=== PATIENT | female | born 1995 | race Hispanic/Latino ===

== ENCOUNTER 2020-08-17 15:23 | Outpatient (CLI) | payer OTHER | END 2020-08-17 15:24 | disposition home or self-care (01) | LOC: DTY/OP 15:23 | PROVIDERS: ATTEND Surgery | DX: E66.01 Morbid (severe) obesity due to excess calories (principal) | CPT/HCPCS: 97802 ==

== ENCOUNTER 2020-10-25 06:17 | Outpatient (CLI) | payer OTHER ==
--- NOTE | 2020-10-25 08:19 | RAD ---
2 VIEWS: CHEST: Date: 10/25/2020 COMPARISON: 07/29/2017. HISTORY: Preoperative radiograph. FINDINGS: Single view of the chest shows normal sized cardiomediastinal silhouette. The previously seen air spa ce opacities in the lungs have resolved. No pleural effusion is seen. No pneumothorax is present. Bon es are unremarkable. IMPRESSION: No evidence of acute cardiopulmonary disease. POS: EAA
[2020-10-25 09:27] LABS: #Basophils 0.1 10x3/uL (0.0-0.2); #Eosinphils 0.1 10x3/uL (0.0-0.5); #Monocytes 0.8 10x3/uL (0.0-1.1); #Neutrophils 6.1 10x3/uL (1.5-8.4); %Basophils 0.5 % (0.0-2.0); %Eosinophils 1.4 % (0.0-6.0); %Lymphocytes 27.7 % (18.0-47.0); %Monocytes 8.4 % (0.0-10.0); %Neutrophils 61.6 % (40.0-75.0); Hemoglobin 11.6 g/dL (12.0-16.0); Mean Corpuscular Hemoglobin 26.9 PG (27.0-33.0); Mean Corpuscular Volume 86.8 fl (80.0-100.0); Mean Platelet Volume 11.9 fl (7.4-10.4); Platelet Count 318 10x3/uL (130-400); RBC Distribution Width 15.8 % (11.5-14.5); Red Blood Cell (RBC) Count 4.31 10x6/uL (3.90-5.20); White Blood Cell (WBC) Count 9.9 10x3/uL (4.5-11.0)
[2020-10-25 09:50] LABS: ALT (SGPT) 303 U/L (8-55); AST (SGOT) 147 U/L (5-34); Alkaline Phosphatase 109 U/L (40-110); Anion Gap 18 mmol/L (10-20); BUN (Urea Nitrogen) 10 mg/dL (7.0-18.7); Bilirubin, Total 0.4 mg/dL (0.2-1.2); Calc. Creatinine Clearance 0 mL/min (70-130); Calcium 9.3 mg/dL (7.8-10.44); Carbon Dioxide 22 mmol/L (22-29); Chloride 104 mmol/L (98-107); Globulin 3.3 g/dL (2.4-3.5); Glucose 101 mg/dL (70-105); Potassium 4.7 mmol/L (3.5-5.1); Protein, Total 7.3 g/dL (6.0-8.3); Sodium 139 mmol/L (136-145)
[2020-10-25 09:52] LABS: BHCG - Serum Negative (NEGATIVE); Pregs Control Background? CLEAR/WHITE (CLR/WHITE); Pregs Control Bar Appear? YES (CONTROL BAR)
[2020-10-25 12:55] LABS: Hemoglobin A1c 5.3 % (4.0-6.0)
[2020-10-25 19:30] LABS: SARS-CoV-2 MS2 Positive; SARS-CoV-2 N Gene Negative; SARS-CoV-2 S Gene Negative; SARS-CoV-2 by NAA Not Detected (NotDetected); SARS-CoV-2 orf1ab Negative
== END 2020-10-25 06:18 | disposition home or self-care (01) ==
LOC: LABBT 06:17
PROVIDERS: ATTEND Surgery
DX: Z01.818 Encounter for other preprocedural examination (principal); Z20.828 Contact with and (suspected) exposure to other viral communicable diseases; E66.01 Morbid (severe) obesity due to excess calories
CPT/HCPCS: 71046; 80053; 83036; 84703; 85025; 87635; 93005; 93010; U0003

== ENCOUNTER 2020-10-25 07:00 | Inpatient (IN) | payer OTHER ==
[2020-10-27 11:11] VITALS: BMI 66.2
[2020-10-30] MEDS ORDERED: Bupivacaine 0.25% HCL 30 ML VIAL ONE ×2 (06:46→09:14)
[2020-10-30] MEDS ORDERED: Lidocaine 1% w/Epinephrine 1:100K 20 ML VIAL ONE ×2 (06:46→09:14)
[2020-10-30] MEDS ORDERED: Heparin 5,000 UNITS/ML VIAL ONE (06:52)
[2020-10-30] MEDS ORDERED: Fentanyl 250 MCG/5 ML VIAL ONE (06:58)
[2020-10-30] MEDS ORDERED: SUGAMMADEX SODIUM 500 MG/5 ML VIAL ONE (06:59)
[2020-10-30] MEDS ORDERED: PROPOFOL 20 ML ONE (06:59)
[2020-10-30] MEDS ORDERED: Midazolam HCl 2 mg/2 ml Vial ONE (07:17)
[2020-10-30] MEDS ORDERED: Scopolamine 1.5 mg/72 hour Patch ONE (07:18)
[2020-10-30] MEDS ORDERED: Rocuronium Bromide 50 MG/5 ML VIAL ONE (08:04)
[2020-10-30] MEDS ORDERED: Promethazine HCl 25 MG/ML VIAL SLOW IVP PRN (08:11)
[2020-10-30] MEDS ORDERED: Promethazine HCl 25 MG/ML VIAL IM PRN ×3 (08:11→09:21)
[2020-10-30] MEDS ORDERED: Ondansetron HCl/PF 4 MG/2 ML Vial IVP PRN (08:11)
[2020-10-30] MEDS ORDERED: Dextrose 5% in Water 1,000 ML IV PRN (08:58)
[2020-10-30] MEDS ORDERED: Ondansetron PF 4 MG/2 ML Vial IVP PRN ×2 (08:58→09:21)
[2020-10-30] MEDS ORDERED: diphenhydrAMINE 50 MG/ML VIAL IVP PRN ×2 (08:58→09:21)
[2020-10-30] MEDS ORDERED: Hydrocodone-Acetamin 15 ML UDCUP PO PRN (08:58)
[2020-10-30] MEDS ORDERED: Dextrose 50% Abboject 50 ML SYRINGE SLOW IVP PRN (08:58)
[2020-10-30] MEDS ORDERED: hydrALAZINE 20 MG/ML VIAL SLOW IVP PRN (08:58)
[2020-10-30] MEDS ORDERED: Promethazine HCl 25 MG/ML VIAL ONE ×2 (09:05)
[2020-10-30] MEDS ORDERED: Fentanyl 100 MCG/2 ML VIAL ONE ×2 (09:16→09:32)
[2020-10-30] MEDS ORDERED: diphenhydrAMINE 25 MG CAP PO PRN (09:21)
[2020-10-30] MEDS ORDERED: Zolpidem Tartrate 5 MG TAB PO PRN (09:21)
[2020-10-30] MEDS ORDERED: fentaNYL Citrate/PF 2,000 MCG in Sodium Chloride 0.9% 60 ML IV PRN (09:21)
[2020-10-30] MEDS ORDERED: diphenhydrAMINE 50 MG/ML VIAL IM PRN (09:21)
[2020-10-30] MEDS ORDERED: Naloxone HCl 0.4 mg/ml Vial IV PRN (09:21)
[2020-10-30] MEDS ORDERED: Communication Order-Pharmacy FS SCH (09:30)
--- NOTE | 2020-10-30 09:32 | OP ---
DATE OF PROCEDURE: 10/30/2020 PREOPERATIVE DIAGNOSIS: Morbid obesity. PROCEDURES PERFORMED: Laparoscopic sleeve gastrectomy, esophagogastroscopy. INDICATIONS: The patient is a 25-year-old female, morbidly obese, who has attempted multiple weight loss programs without success. FINDINGS: A 38-[place] bougie was used. Very large woman with a BMI of almost 70. Large extra long trocars had to be used. DESCRIPTION OF PROCEDURE: After informed consent was obtained, the patient was taken to the operating room, given general endotracheal anesthesia, placed in the supine position. Abdomen was prepped and draped in usual fashion. Local anesthesia was infiltrated subcutaneously and deep, and a 12 mm incision was performed approximately 8 inches below the xiphoid, slightly to the left. Veress needle was inserted. Drop test was performed. Pneumoperitoneum was created to a volume of 2 L of carbon dioxide. Utilizing a bladeless 12 mm trocar and 0-degree laparoscope, direct visual entry into the abdominal cavity was performed. Pneumoperitoneum was created to a pressure of 15 mmHg, and the patient was placed in steep reverse Trendelenburg position. Sid liver retractor was inserted. Left lobe of the liver was retracted superiorly. Pylorus was identified. A 12 mm port was placed on the right beneath it and two 12s were placed left subcostal. The omentum was taken off the greater curvature 5 cm from the pylorus utilizing a LigaSure. Short gastrics were divided with the LigaSure. Left crura defined with LigaSure. A 38-[place] bougie inserted, directed into the antrum. The linear 60 mm green load stapler was used to divide the antrum to the bougie, gold load along the bougie, and a series of blues through the angle of His. Intraoperative endoscopy was performed. The video endoscope was inserted under direct vision, advanced into the sleeve. The staple line was inspected. There was no bleeding. Staple line then tested by inflating the new stomach with pressurized air and water. There was no air leak. Stomach was decompressed. Scope was removed. The remnant stomach was removed from abdomen through left lateral port site. The fascia was closed with 0 Vicryl suture in the GraNee needle. Trocars and retractors were removed. Skin was closed with interrupted 4-0 Rapide. Dermabond was applied. The patient tolerated the procedure well and transferred to Recovery in good condition. Sponge and needle count verified correct x2. Job ID: [id number]
[2020-10-30] MEDS ORDERED: Ondansetron PF 4 MG/2 ML Vial ONE (10:03)
[2020-10-30] MEDS ORDERED: Glycopyrrolate 0.2 MG/ML 5 ML SYRINGE ONE (10:03)
[2020-10-30] MEDS ORDERED: Dexamethasone 20 MG/5 ML VIAL ONE (10:03)
[2020-10-30] MEDS ORDERED: Ketorolac Tromethamine 30 MG/ML VIAL ONE (10:03)
[2020-10-30] MEDS ORDERED: Lidocaine 1% PF 5 ML VIAL ONE (10:03)
[2020-10-30] MEDS ORDERED: Rocuronium Bromide 10 MG/ML (10ML VIAL) ONE (10:03)
[2020-10-30] MEDS ORDERED: PROPOFOL 200 MG/20 ML VIAL ONE (10:03)
[2020-10-30] MEDS: Enoxaparin Sodium 40 MG/0.4 ML SYRINGE SC SCH (10:28)
[2020-10-30] MEDS: D5 1/2 NS w/20 mEq KCL 1,000 ML IV SCH ×3 (10:28→17:30)
[2020-10-30] MEDS: Pantoprazole 40 MG VIAL IVP SCH (10:29)
[2020-10-30] MEDS: Ketorolac Tromethamine 30 MG/ML VIAL IVP SCH ×2 (12:21→17:31)
[2020-10-31] MEDS: Ketorolac Tromethamine 30 MG/ML VIAL IVP SCH ×2 (00:56→05:42)
[2020-10-31 05:59] LABS: #Lymphocytes 2.2 thou/uL (1.20-3.40); #Monocytes 1.1 thou/uL (0.11-0.59); #Neutrophils 8.3 thou/uL (1.40-6.50); %Basophils 0.1 % (0.0-1.0); %Eosinophils 0.3 % (0.0-10.0); %Lymphocytes 18.9 % (21.0-51.0); %Monocytes 9.2 % (0.0-10.0); %Neutrophils 71.5 % (42.0-75.0); Hemoglobin 10.4 g/dL (12.0-16.0); Mean Corpuscular HGB CONC 33.2 g/dL (32.0-36.0); Mean Corpuscular Volume 87.2 fL (78.0-98.0); Mean Platelet Volume 9.9 fL (7.4-10.4); Platelet Count 221 thou/uL (130-400); RBC Distribution Width 14.3 % (11.5-14.5); White Blood Cell (WBC) Count 11.6 thou/uL (4.8-10.8)
[2020-10-31 06:14] LABS: Anion Gap 13 mmol/L (10-20); BUN (Urea Nitrogen) 7 mg/dL (7.0-18.7); Calc. Creatinine Clearance 363 mL/min (70-130); Calcium 8.5 mg/dL (7.8-10.44); Carbon Dioxide 23 mmol/L (22-29); Chloride 106 mmol/L (98-107); Glucose 129 mg/dL (70-105); Potassium 4.3 mmol/L (3.5-5.1); Sodium 138 mmol/L (136-145)
--- NOTE | 2020-10-31 08:15 | RAD ---
Esophagram HISTORY: Bariatric surgery. FINDINGS: Single column contrast evaluation shows postoperative changes of the stomach consistent wit h recent gastric sleeve procedure. There is no evidence of obstruction or leak.
[2020-10-31] MEDS: Pantoprazole 40 MG VIAL IVP SCH (08:46)
[2020-10-31] MEDS: Enoxaparin Sodium 40 MG/0.4 ML SYRINGE SC SCH (08:46)
[2020-10-31] MEDS ORDERED: Hydrocodone-Acetamin 15 ML UDCUP PO PRN (08:54)
[2020-10-31 11:10] VITALS: BP 142/82; TEMP 97.9
[2020-10-31] MEDS: D5 1/2 NS w/20 mEq KCL 1,000 ML IV SCH (12:17)
[2020-10-31] MEDS ORDERED: FLU VACC QS2020-21(6MOS UP)/PF 60 MCG/0.5 ML SYRINGE IM ONE (12:30)
[2020-10-31] MEDS ORDERED: Prevnar 13-Val Conj/PF 0.5 ML SYRINGE IM ONE (12:30)
--- NOTE | 2020-10-31 15:57 | DIS ---
DATE OF ADMISSION: 10/30/2020 DATE OF DISCHARGE: 10/31/2020 DISCHARGE DIAGNOSIS: Morbid obesity. PROCEDURES DURING ADMISSION: Laparoscopic sleeve gastrectomy, intraoperative esophagogastroscopy. HOSPITAL COURSE: The patient was admitted, taken to the operating room, where she underwent sleeve gastrectomy. Postoperatively, she has done well. She is tolerating liquids well. Her pain is controlled on p.o. med. She is discharged home on hydrocodone and Zofran. She will follow up with me in 2 weeks. Job ID: [id number]
== END 2020-10-31 13:19 | disposition home or self-care (01) | DRG 621 ==
LOC: SURG A 10-30 06:01
PROVIDERS: ADMIT Surgery; ATTEND Surgery
PROC: 0DB64Z3 Excision of Stomach, Percutaneous Endoscopic Approach, Vertical (ICD-10-PCS; principal; 2020-10-30)
PROC: 0DJ08ZZ Inspection of Upper Intestinal Tract, Via Natural or Artificial Opening Endoscopic (ICD-10-PCS; 2020-10-30)
DX: E66.01 Morbid (severe) obesity due to excess calories (principal); Z68.44 Body mass index [BMI] 60.0-69.9, adult; Z20.828 Contact with and (suspected) exposure to other viral communicable diseases; F17.210 Nicotine dependence, cigarettes, uncomplicated
CPT/HCPCS: 36415; 74240; 80048; 85025; 88307; 88312; C9113; J0690; J1100; J1644; J1650; J1885; J2250; J2405; J2550; J2704; J3010; J3480; S0020

== ENCOUNTER 2020-11-02 12:11 | Emergency (ER) | payer OTHER ==
[2020-11-02 12:57] LABS: Bacteria/HPF None Seen HPF (None Seen); Bilirubin Negative (Negative); Blood, Urine Trace (Negative); Clarity Clear (Clear); Glucose, Urine (Dipstick) Normal (Negative); Ketone, Urine 10 mg/dL (Negative); Leukocyte Negative Leu/uL (Negative); Nitrite Negative (Negative); Protein, Urine (Dipstick) Negative (Neg-Trace); RBC/HPF 0-3 HPF (0-3); Specific Gravity, Urine 1.008 (1.002-1.036); Squamous Epithelial 0-3 HPF (0-3); WBC/HPF 0-3 HPF (0-3)
[2020-11-02 13:22] LABS: #Eosinphils 0.1 thou/uL (0.0-0.7); #Lymphocytes 2.2 thou/uL (1.20-3.40); #Monocytes 0.7 thou/uL (0.11-0.59); #Neutrophils 6.2 thou/uL (1.40-6.50); %Basophils 0.3 % (0.0-1.0); %Eosinophils 1.3 % (0.0-10.0); %Lymphocytes 23.5 % (21.0-51.0); %Monocytes 7.7 % (0.0-10.0); %Neutrophils 67.2 % (42.0-75.0); Hemoglobin 11.6 g/dL (12.0-16.0); Mean Corpuscular HGB CONC 32.4 g/dL (32.0-36.0); Mean Corpuscular Hemoglobin 27.8 pg (27.0-31.0); Mean Corpuscular Volume 85.8 fL (78.0-98.0); Mean Platelet Volume 9.6 fL (7.4-10.4); Platelet Count 252 thou/uL (130-400); RBC Distribution Width 14.2 % (11.5-14.5); Red Blood Cell (RBC) Count 4.18 mill/uL (4.20-5.40); White Blood Cell (WBC) Count 9.2 thou/uL (4.8-10.8)
[2020-11-02 13:48] LABS: ALT (SGPT) 408 U/L (8-55); AST (SGOT) 113 U/L (5-34); Albumin 3.7 g/dL (3.5-5.0); Alkaline Phosphatase 113 U/L (40-110); Anion Gap 15 mmol/L (10-20); BUN (Urea Nitrogen) 7 mg/dL (7.0-18.7); Bilirubin, Total 0.8 mg/dL (0.2-1.2); Calc. Creatinine Clearance 0 mL/min (70-130); Calcium 9.1 mg/dL (7.8-10.44); Carbon Dioxide 23 mmol/L (22-29); Chloride 104 mmol/L (98-107); Globulin 3.6 g/dL (2.4-3.5); Glucose 85 mg/dL (70-105); Potassium 4.2 mmol/L (3.5-5.1); Protein, Total 7.3 g/dL (6.0-8.3); Sodium 138 mmol/L (136-145)
[2020-11-02] MEDS ORDERED: Morphine 4 MG/ML VIAL ONE (14:28)
[2020-11-02 14:49] LABS: BHCG - Serum Negative (NEGATIVE); Pregs Control Background? CLEAR/WHITE (CLR/WHITE); Pregs Control Bar Appear? YES (CONTROL BAR)
--- NOTE | 2020-11-02 15:33 | CT ---
CT OF THE ABDOMEN AND PELVIS WITH IV CONTRAST INDICATION: Epigastric abdominal pain with dysuria history of gastric sleeve surgery procedure on Oct COMPARISON: None FINDINGS: ABDOMEN: Lung bases: There is mild subsegmental volume loss within both lung bases. Liver: No focal lesion. Gallbladder: Normal appearing. Pancreas: Normal. Adrenal glands: Normal. Spleen: Mild splenomegaly measuring 15 cm Kidneys and ureters: Normal. No hydronephrosis. Vasculature: Normal. Lymph nodes:No lymphadenopathy. Free fluid in abdomen:No free fluid is evident. PELVIS: Small and large bowel: There is postsurgical change of a gastric sleeve procedure. Small bowel is of normal caliber. The large bowel appears within normal limits. There is some residual enteric contrast within the colon likely from the patient's prior upper GI. Appendix:Normal Bladder: Normal. Rectal and perirectal soft tissues:Normal. Reproductive structures: Normal. Free fluid in pelvis: No free fluid is evident. Lymphadenopathy pelvis: No lymphadenopathy is evident. Osseous structures: No acute osseous abnormality. No destructive osteolytic or osteoblastic lesion i s identified. There is scattered degenerative and osteoarthritic changes. Soft tissues:There is some reticulation as well as soft tissue gas within the intra-abdominal wall li jose cruz related to port size from the patient's prior gastric sleeve procedure. IMPRESSION: 1. Postoperative change consistent with a gastric sleeve procedure. No free fluid or free air is evid ent within the abdomen. 2. Mild splenomegaly.
== END 2020-11-02 17:01 | disposition home or self-care (01) ==
LOC: ERS 12:11
DX: R10.13 Epigastric pain (principal); I10 Essential (primary) hypertension; Z79.899 Other long term (current) drug therapy
CPT/HCPCS: 36415; 74177; 80053; 81003; 81015; 84703; 85025; 96374; J2270